=== PATIENT | female | born 1965 | race Caucasian/White ===

== ENCOUNTER → 2023-09-07 08:28 | Outpatient (REF) | payer BC, SELFPAY ==
[2023-09-07 09:15] LABS: % Basophils 0.9 % (0-2); % Eosinophils 4.2 % (0-6); % Immature Granulocytes 0.2 % (0-0.5); % Lymphocytes 24.9 % (20.5-51.1); % Monocytes 8.8 % (1.7-9.3); Absolute Eosinophils 0.2 10^3/uL (0-0.7); Absolute Lymphocytes 1.1 10^3/uL (1.2-3.4); Absolute Monocytes 0.4 10^3/uL (0.1-0.6); Absolute Neutrophils 2.8 10^3/uL (1.4-6.5); Hematocrit 40.5 % (37.0-47.0); Mean Corp Hgb Conc. 34.6 g/dL (33.0-37.0); Mean Corpuscular Hgb 31.6 pg (27.0-31.0); Mean Corpuscular Volume 91.4 fL (81.0-99.0); Nucleated Red Blood Cells % 0 %; Platelet Count 317 10^3/uL (130-400); Red Blood Cell Count 4.43 10^6/uL (4.20-5.40); Red Cell Dist. Width 12.1 % (11.5-14.5); White Blood Cell Count 4.6 10^3/uL (4.8-10.8)
[2023-09-07 09:48] LABS: ALT (SGPT) 18 U/L (0-35); AST (SGOT) 28 U/L (14-36); Albumin 4.2 g/dl (3.5-5.0); Alkaline Phosphatase 48 U/L (38-126); Blood Urea Nitrogen 17 mg/dl (7-17); Calcium 9.6 mg/dl (8.4-10.2); Carbon Dioxide 33 mmol/L (22-30); Chloride 98 mmol/L (98-107); Glucose 84 mg/dl (70-99); HDL Cholesterol 75 mg/dl; LDL Cholesterol, Calculated 105 mg/dl; Potassium 4.2 mmol/L (3.5-5.1); Sodium 138 mmol/L (135-145); Total Bilirubin 0.8 mg/dl (0.2-1.3); Total Cholesterol 199 mg/dl (50-199); Total Protein 7.1 g/dl (6.3-8.2); Triglyceride 97 mg/dl (10-149); Very Low Density Lipoprotein 19 mg/dl (0-30); eGFR > 60.00
[2023-09-07 10:15] LABS: TSH Reflex To Free T4 0.47 uIU/ml (0.47-4.68)
== END ==
LOC: REG 08:28
PROVIDERS: ATTENDING PHYSICIAN Family Medicine
DX: Z00.00 Encounter for general adult medical examination without abnormal findings (principal); E03.9 Hypothyroidism, unspecified; Z79.899 Other long term (current) drug therapy
CPT/HCPCS: 36415; 80053; 80061; 84443; 85025

== ENCOUNTER → 2023-11-13 08:17 | Outpatient (REF) | payer BC, SELFPAY ==
[2023-11-13 11:55] LABS: Vitamin B12 288 pg/ml (239-931)
[2023-11-14 20:49] LABS: Intrinsic Factor Blocking Ab Negative (Negative)
[2023-11-15 23:32] LABS: IgA 212 mg/dl (70-400)
== END ==
LOC: REG 08:17
PROVIDERS: ATTENDING PHYSICIAN Internal Medicine; FAMILY PHYSICIAN Family Medicine
DX: E53.8 Deficiency of other specified B group vitamins (principal)
CPT/HCPCS: 36415; 82607; 82784; 83516; 86231; 86340

== ENCOUNTER → 2023-12-03 06:30 | Day surgery (SDC) | payer BC, SELFPAY | LOC: GI 06:30 | PROVIDERS: ATTENDING PHYSICIAN Internal Medicine | DX: R13.10 Dysphagia, unspecified (principal); K22.4 Dyskinesia of esophagus; K22.2 Esophageal obstruction; K44.9 Diaphragmatic hernia without obstruction or gangrene; K31.89 Other diseases of stomach and duodenum; K20.80 Other esophagitis without bleeding | CPT/HCPCS: 43249; 43239; 88305; 88342 ==

== ENCOUNTER → 2024-02-23 09:57 | Outpatient (REF) | payer OTHER, SELFPAY ==
[2024-02-23 10:48] LABS: % Basophils 0.6 % (0-2); % Eosinophils 4.4 % (0-6); % Immature Granulocytes 0.2 % (0-0.5); % Lymphocytes 22.4 % (20.5-51.1); % Monocytes 9.8 % (1.7-9.3); % Neutrophils 62.6 % (42.2-75.2); Absolute Eosinophils 0.2 10^3/uL (0-0.7); Absolute Lymphocytes 1.1 10^3/uL (1.2-3.4); Absolute Monocytes 0.5 10^3/uL (0.1-0.6); Hematocrit 40.4 % (37.0-47.0); Mean Corp Hgb Conc. 34.7 g/dL (33.0-37.0); Mean Corpuscular Hgb 32.3 pg (27.0-31.0); Mean Corpuscular Volume 93.3 fL (81.0-99.0); Mean Platelet Volume 9.1 fL (7.4-10.4); Nucleated Red Blood Cells % 0 %; Platelet Count 299 10^3/uL (130-400); Red Blood Cell Count 4.33 10^6/uL (4.20-5.40); Red Cell Dist. Width 12.8 % (11.5-14.5); White Blood Cell Count 4.8 10^3/uL (4.8-10.8)
[2024-02-23 10:54] LABS: Urine Albumin Negative (Neg - Trace); Urine Bilirubin 1+ (Negative); Urine Character Clear (Clear); Urine Color Yellow; Urine Glucose Negative (Negative); Urine Ketone Negative (Negative); Urine Leukocyte Negative (Negative); Urine Nitrite Negative (Negative); Urine Occult Blood Trace (Negative); Urine Specific Gravity 1.015 (<1.030); Urine Urobilinogen Negative (Neg - 1+)
[2024-02-23 11:22] LABS: ALT (SGPT) 30 U/L (0-35); AST (SGOT) 37 U/L (14-36); Alkaline Phosphatase 54 U/L (38-126); Blood Urea Nitrogen 13 mg/dl (7-17); Calcium 9.6 mg/dl (8.4-10.2); Chloride 102 mmol/L (98-107); Glucose 83 mg/dl (70-99); Potassium 4.2 mmol/L (3.5-5.1); Sodium 138 mmol/L (135-145); Total Bilirubin 0.7 mg/dl (0.2-1.3); Total Protein 6.6 g/dl (6.3-8.2); eGFR > 60.00
[2024-02-23 11:30] LABS: Carbon Dioxide 29 mmol/L (22-30)
[2024-02-23 11:49] LABS: TSH Reflex To Free T4 1.73 uIU/ml (0.47-4.68)
[2024-02-23 11:54] LABS: Urine Amorphous Seen
[2024-02-23 11:55] LABS: Urine White Cell 0-2 /HPF (0-5)
== END ==
LOC: REG 09:57
PROVIDERS: ATTENDING PHYSICIAN Obstetrics & Gynecology Gynecologic Oncology; FAMILY PHYSICIAN Family Medicine; REFERRING PHYSICIAN Dermatology
DX: D07.1 Carcinoma in situ of vulva (principal); L90.0 Lichen sclerosus et atrophicus
CPT/HCPCS: 36415; 80053; 81003; 81015; 84443; 85025; 87086

== ENCOUNTER 2024-03-29 06:06 | Day surgery (SDC) | payer OTHER, SELFPAY ==
[2024-03-08 09:44] VITALS: BMI 21.1
[2024-03-08 10:19] LABS: Hematocrit 40.8 % (37.0-47.0); Hemoglobin 14.1 g/dL (12.0-16.0); Mean Corp Hgb Conc. 34.6 g/dL (33.0-37.0); Mean Corpuscular Hgb 31.5 pg (27.0-31.0); Mean Corpuscular Volume 91.1 fL (81.0-99.0); Mean Platelet Volume 9.4 fL (7.4-10.4); Platelet Count 378 10^3/uL (130-400); Red Blood Cell Count 4.48 10^6/uL (4.20-5.40); Red Cell Dist. Width 12.6 % (11.5-14.5); White Blood Cell Count 6.2 10^3/uL (4.8-10.8)
[2024-03-08 10:35] LABS: ALT (SGPT) 17 U/L (0-35); AST (SGOT) 27 U/L (14-36); Albumin 4.1 g/dl (3.5-5.0); Alkaline Phosphatase 58 U/L (38-126); Blood Urea Nitrogen 13 mg/dl (7-17); Calcium 9.6 mg/dl (8.4-10.2); Carbon Dioxide 34 mmol/L (22-30); Chloride 101 mmol/L (98-107); Estimated Creatinine Clearance 112 ml/min; Glucose 86 mg/dl (70-99); Potassium 4.2 mmol/L (3.5-5.1); Sodium 140 mmol/L (135-145); Total Bilirubin 0.8 mg/dl (0.2-1.3); Total Protein 6.7 g/dl (6.3-8.2); eGFR > 60.00
--- NOTE | 2024-03-28 18:35 | W.CON.GYNONC ---
Chief Complaint
-
High grade DREW
History of Present Illness
History�of�Present�Illness 58�yo��WF�referred�to�me�by�Dr�Toporcer�for�VIN3/CIS�of�vulva. Patient�currently�seen�on�follow�up�by�Dr.�Toporcer�of�the�dermatology�,�recent�visit�she�was�noted�to�have�area�of�posterior�vulva
with�abnormality,�it�has�been�unresponsive�provide�topical�steroids,�biopsy�was�done,�the�only�other�biopsy�that�I�did�not�do�for�was
a�deeply�pigmented�macule�in�the�left�labia�majora�2021�which�proved�to�be�labial�Lentigo.�She�has�been�diagnosed�with�lichen
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
Aquaphor�intermittently.�She�has�been�having�particular�discomfort�along�the�right�aspect�of�the�posterior�vulva�and�this�symptom has�been�present�for�the�past�couple�of�months.�
Patient�has�been�menopausal�for�approximately�8�years.�She�has�her�ovaries�but�she�has�had�3�prior�C�sections�abdominal hysterectomy. Past�medical�history�includes�seasonal�allergies�colitis�genital�herpes,�thyroid�disease,�basal�cell�carcinoma,
Past�surgical�history�includes�hip�replacement�right,�no�surgery�198,�3�prior�C�section,�lithotripsy,�breast�augmentation,�meniscus repair�left�knee�and�total�hysterectomy�1994
Medications�include�retinal�syndrome,�clobetasol,�Aquaphor,�Synthroid,�May�acyclovir�,�esomeproazole Patient�reports�allergies�to�penicillin�and�erythromycin�and�tetracycline.
Health�maintenance�includes�mammography�202,�colonoscopy�2016�followed�by�recent�Cologuard
Medical History
Allergies
Allergies reflect when allergies were last updated in [employer].
erythromycin base [Erythromycin Base] Allergy (Verified 03/22/24 09:16)
Hives
Penicillins Allergy (Verified 03/22/24 09:16)
Rash
Sulfa (Sulfonamide Antibiotics) Allergy (Verified 03/22/24 09:16)
Unknown
Tetracyclines Allergy (Verified 03/22/24 09:16)
Tongue Swelling
Physical Exam
Physical Exam
Physical Exam
Pelvic Examination:
External normal labia, urethra, anus. There is a scattered macules throughout right and left labia majora, the recent biopsy has
been performed for right perianal buttocks skin, there is a vague erythematous area around it. The patient also has a similar but
much smaller area of irritation in the left perianal region.
Vagina: Normal mucosa. cuff intact, no lesions seen
Marcy Palm, 1965 Page 2 of 3
Adnexa: No pelvic mass.
RVE: no masses or nodularity
General: Well developed, well nourished patient. In no acute distress.
Head: Atraumatic and normocephalic.
Lungs: Clear to auscultation. Good air movement bilaterally.
Cardiac: Regular rate. Regular rhythm. No murmurs appreciated.
Right Breast: No masses or dimpling. No nipple discharge.
Left Breast: No masses or dimpling. No nipple discharge.
Abdomen: Abdomen is soft. Non�tender to palpation. Non�distended.
Extremities: No edema.
Hematologic/Lymphatic: No palpable lymphadenopathy.
Musculoskeletal: Normal range of motion. Strength and Tone are normal.
Skin:Non�jaundiced. No petechia. No purpura.
Neurologic: Speech is fluent. Normal gait and station. Cranial nerves intact.
Results
-
03/08/24 09:17
03/08/24 09:17
Impression / Plan
-
Patient appears to have generalized lichen sclerosus involving external genitalia that has been present for over 5 years. She now
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 The areas of concern appear to
be poor perianal skin. My recommendation is for her to use estrogen vaginal cream on the external genitalia for approximately 4 to 6
weeks in order to improve the compliance and health of external genital skin. I recommend proceeding with surgical excision which
is essentially partial simple vulvectomy and excision of perianal skin bilaterally. Surgery will be done as outpatient. Labs including
CMP CBC was requested. I will schedule surgery later in March 2024. Risks including infection bleeding injury to adjacent
organs DVT pulmonary embolus discussed and reviewed. Patient does understand that the purpose of surgery is to exclude
possibility of coexistent squamous cell carcinoma and to actually excised the area of concern. We discussed that she will need to
be closely monitored for development of additional areas of squamous cell carcinoma of the vulva in the future and monthly
examination by the patient is encouraged
[2024-03-29] VITALS (14 sets, daily range): BP systolic 97–116; BP diastolic 44–72; BMI 21.1
[2024-03-29] MEDS: NEURONTIN 300 MG PO (06:29)
[2024-03-29] MEDS: MOBIC 15 MG PO (06:29)
[2024-03-29] MEDS: HEPARIN 5000 UNITS SC (06:30)
[2024-03-29] MEDS: NORMOSOL-R/PLASMALYTE-A 1000 IV (06:30)
[2024-03-29] MEDS: TYLENOL 1000 MG PO (06:30)
[2024-03-29] MEDS: DILAUDID 0.5 MG IV (08:59)
--- NOTE | 2024-03-29 09:25 | OR.RPT ---
Operative Report
Operative Report
Date of procedure: March 29, 2024
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
Postop diagnosis same
Procedure: Colposcopy of external genitalia including vulva and perianal skin
Partial simple posterior vulvectomy
Excision of perianal skin with primary repair bilateral
Excision of anterior labial skin tags
Anesthesia: General Endotracheal intubation
Surgeon: Jd Clancy MD
Assist: Orestes De Los Santos PA-C
Estimated blood loss: None
Complications: None
Procedure in detail: This patient was brought to the operating room and placed in supine position. General anesthesia was administered and she was intubated without difficulty. She was placed in lithotomy position using yellowfin stirrups, the
hairbearing portion of the external genitalia was clipped. Timeout procedure was carried out, she received 2 g of Ancef for prophylaxis. We applied 5% acetic acid and performed colposcopy. We saw erythema and 1 to 2 cm portion of perianal skin on
the right side and a 1 cm lesion in the left side. Along the posterior vulva at the introitus there was acetowhite epithelium, there is additionally pigmented lesion in the labia minora on the right side. The external genitalia did not exhibit any
significant abnormalities but 2 pigmented skin tags were present. After this skin was prepped with chlorhexidine, vagina was prepped with Betadine solution. The patient was prepped and draped. I used a marking pen to jd the lesions to be
excised. Electrocautery was used to excise right and left perianal skin, posterior vulvectomy was performed in a U-shaped fashion encompassing labia minora perineal body and right and left labia. Additionally skin tags from right and left labia
were excised and submitted to pathology.
The closure of all incisions were performed with 3-0 Monocryl suture in horizontal mattress fashion reapproximate the skin edges. At the completion of the procedure we injected 0.25% Marcaine in all incisions. Her legs were placed back in supine
position. She was awakened returned back to recovery room stable awake and extubated condition. Counts of laps instruments and needle was correct x 2. I was present and scrubbed for entire procedure as dictated above.
--- NOTE | 2024-03-29 09:31 | W.PN.GYNONC ---
Today's Communication
-
see above
Impression / Plan
-
X-ray of the hip was reviewed, there was no evidence of dislocation. Impression is that this is a musculoskeletal injury. The patient will be prescribed nonsteroidal anti-inflammatory medications. I will await patient to demonstrate weightbearing
prior to plan for discharge.
Subjective / Interval History
-
Immediately after the procedure the patient was extubated and was complaining of hip pain. She was transported to recovery room. I consulted with orthopedic surgery and they recommended obtaining an x-ray of the right hip. This was ordered.
After approximately 20 minutes the patient was able to flex her hip, she had received some pain medications in the interim.
Objective Data
-
Lab Results:
03/08/24 09:17
03/08/24 09:17
Physical Exam
Vital Signs / I&O
Vitals
Temp Pulse Resp BP Pulse Ox
97.5 F 56 15 106/44 100
03/29/24 08:35 03/29/24 09:15 03/29/24 09:15 03/29/24 09:15 03/29/24 09:15
Data Reviewed
-
Diagnostic Radiology: Image personally visualized and interpreted
[2024-03-29] MEDS: SKELAXIN 800 MG PO (09:33)
[2024-03-29] MEDS: ZOFRAN 4 MG IV (12:35)
== END 2024-03-29 13:04 | disposition home or self-care (01) ==
LOC: SDS 06:06
PROVIDERS: ATTENDING PHYSICIAN Obstetrics & Gynecology Gynecologic Oncology; FAMILY PHYSICIAN Family Medicine; OTHER PHYSICIAN Dermatology; OTHER PHYSICIAN Obstetrics & Gynecology
DX: D07.1 Carcinoma in situ of vulva (principal); L28.0 Lichen simplex chronicus
CPT/HCPCS: 56620; 11200; 11420; 88304; 88307; 36415; 73502; 80053; 85027; 86850; 86900; 86901; 88341; 88342; 93005

== ENCOUNTER → 2024-05-16 11:43 | Outpatient (REF) | payer OTHER, SELFPAY | LOC: WDC 11:43 | PROVIDERS: ATTENDING PHYSICIAN Obstetrics & Gynecology; FAMILY PHYSICIAN Family Medicine | DX: Z12.31 Encounter for screening mammogram for malignant neoplasm of breast (principal) | CPT/HCPCS: 77063; 77067 ==

== ENCOUNTER → 2024-10-17 08:49 | Outpatient (REF) | payer OTHER, SELFPAY ==
[2024-10-17 09:34] LABS: % Basophils 0.8 % (0-2); % Eosinophils 5.4 % (0-6); % Lymphocytes 31.9 % (20.5-51.1); % Monocytes 10.5 % (1.7-9.3); % Neutrophils 51.4 % (42.2-75.2); Absolute Eosinophils 0.2 10^3/uL (0-0.7); Absolute Lymphocytes 1.1 10^3/uL (1.2-3.4); Absolute Monocytes 0.4 10^3/uL (0.1-0.6); Absolute Neutrophils 1.8 10^3/uL (1.4-6.5); Hematocrit 41.7 % (37.0-47.0); Hemoglobin 13.9 g/dL (12.0-16.0); Mean Corp Hgb Conc. 33.3 g/dL (33.0-37.0); Mean Corpuscular Hgb 30.9 pg (27.0-31.0); Mean Corpuscular Volume 92.7 fL (81.0-99.0); Mean Platelet Volume 9.4 fL (7.4-10.4); Nucleated Red Blood Cells % 0 %; Platelet Count 295 10^3/uL (130-400); Red Cell Dist. Width 12.1 % (11.5-14.5); White Blood Cell Count 3.5 10^3/uL (4.8-10.8)
[2024-10-17 10:52] LABS: TSH Reflex To Free T4 0.15 uIU/ml (0.47-4.68)
[2024-10-17 11:33] LABS: ALT (SGPT) 16 U/L (0-35); AST (SGOT) 24 U/L (14-36); Albumin 4.3 g/dl (3.5-5.0); Alkaline Phosphatase 46 U/L (38-126); Blood Urea Nitrogen 18 mg/dl (7-17); Calcium 9.2 mg/dl (8.4-10.2); Carbon Dioxide 27 mmol/L (22-30); Chloride 103 mmol/L (98-107); Glucose 77 mg/dl (70-99); HDL Cholesterol 67 mg/dl; LDL Cholesterol, Calculated 110 mg/dl; Sodium 142 mmol/L (135-145); Total Bilirubin 0.7 mg/dl (0.2-1.3); Total Cholesterol 191 mg/dl (50-199); Total Protein 6.9 g/dl (6.3-8.2); Triglyceride 71 mg/dl (10-149); Very Low Density Lipoprotein 14 mg/dl (0-30); eGFR > 60.00
[2024-10-17 12:20] LABS: Free T4 1.83 ng/dl (0.78-2.19)
== END ==
LOC: REG 08:49
PROVIDERS: ATTENDING PHYSICIAN Family Medicine
DX: D07.1 Carcinoma in situ of vulva (principal); E03.9 Hypothyroidism, unspecified; Z13.1 Encounter for screening for diabetes mellitus; Z13.6 Encounter for screening for cardiovascular disorders
CPT/HCPCS: 36415; 80053; 80061; 84439; 84443; 85025

== ENCOUNTER → 2024-11-22 10:49 | Outpatient (REF) | payer OTHER, SELFPAY | LOC: WDC 10:49 | PROVIDERS: ATTENDING PHYSICIAN Obstetrics & Gynecology Gynecologic Oncology; FAMILY PHYSICIAN Family Medicine; REFERRING PHYSICIAN Obstetrics & Gynecology | DX: R92.2 Inconclusive mammogram (principal) | CPT/HCPCS: 76641 ==

== ENCOUNTER → 2025-01-11 08:03 | Outpatient (REF) | payer OTHER, SELFPAY | LOC: REG 08:03 | PROVIDERS: ATTENDING PHYSICIAN Family Medicine | DX: E03.9 Hypothyroidism, unspecified (principal) | CPT/HCPCS: 36415; 84443 ==

== ENCOUNTER → 2025-03-29 09:04 | Outpatient (REF) | payer OTHER, SELFPAY | LOC: RAD 09:04 | PROVIDERS: ATTENDING PHYSICIAN Chiropractor | DX: M54.2 Cervicalgia (principal); M99.01 Segmental and somatic dysfunction of cervical region; M54.6 Pain in thoracic spine; M99.02 Segmental and somatic dysfunction of thoracic region; M54.50 Low back pain, unspecified; M99.03 Segmental and somatic dysfunction of lumbar region; M99.04 Segmental and somatic dysfunction of sacral region; M54.17 Radiculopathy, lumbosacral region; M25.552 Pain in left hip | CPT/HCPCS: 72040; 72072; 72100; 72170; 73502 ==

== ENCOUNTER → 2025-05-17 13:26 | Outpatient (REF) | payer OTHER, SELFPAY | LOC: WDC 13:26 | PROVIDERS: ATTENDING PHYSICIAN Family Medicine | DX: Z12.31 Encounter for screening mammogram for malignant neoplasm of breast (principal); R92.8 Other abnormal and inconclusive findings on diagnostic imaging of breast | CPT/HCPCS: 76642; 77063; 77067 ==